=== PATIENT | male | born 1970 | race Caucasian/White ===

== ENCOUNTER 2016-07-22 23:01 | Emergency (ER) | payer SELFPAY | END 2016-07-23 00:05 | disposition short-term general hospital (02) | LOC: ER 23:01 | DX: I21.19 ST elevation (STEMI) myocardial infarction involving other coronary artery of inferior wall (principal); I11.0 Hypertensive heart disease with heart failure; I50.9 Heart failure, unspecified; F17.210 Nicotine dependence, cigarettes, uncomplicated | CPT/HCPCS: 36415; 96365; 96375; J1644 ==